=== PATIENT | male | born 1950 | race Caucasian/White ===

== ENCOUNTER 2020-12-04 10:56 | Observation (INO) | payer OTHER, SELFPAY ==
[2020-12-04] VITALS (13 sets, daily range): BP systolic 142–185; BP diastolic 75–108; PULSE 55–82; RESP 14–22; TEMP 36–36.4; O2SAT 99–100; BMI 25.4
--- NOTE | ~2020-12-04 | XR_ITS ---
XR chest 2V DATE: 12/04/2020 11:18 INDICATION: Acute onset of chest pressure TECHNIQUE: PA and lateral views COMPARISON: 05/27/2016 two-view chest FINDINGS: There is bilateral hyperinflation. No pulmonary infiltrate or consolidation, pleural effusi on or pulmonary vascular congestion or pneumothorax. Normal heart size. No hilar or mediastinal enlar gement. Degenerative spurring of the thoracic spine. IMPRESSION: Bilateral hyperinflation; no active cardiopulmonary disease Reviewed, dictated and finalized at location B.
--- NOTE | 2020-12-04 10:58 | ECG_ITS ---
Measurements Intervals Energy Rate: 82 P: 75 MT: 170 QRS: -45 QRSD: 103 T: 58 QT: 351 QTc: 410 Interpretive Statements SINUS RHYTHM INCOMPLETE RIGHT BUNDLE BRANCH BLOCK LEFT ANTERIOR FASCICULAR BLOCK ABNORMAL ECG Electronically Signed On 12-04-2020 11:07:56 CDT by Juan José Fernandez D.O.
[2020-12-04 11:13] LABS: Basophils Absolute Auto 0.1 K/mm3 (0.0-0.1); Basophils Percent Auto 0.8 % (0.2-1.2); Eosinophils Absolute Auto 0.3 K/mm3 (0-0.3); Eosinophils Percent Auto 2.8 % (0-4.4); Hematocrit 43.1 % (42.0-52.0); Hemoglobin 14.4 g/dL (14.0-18.0); Immature Granulocyte Absolute 0.03 K/mm3 (0.00-0.031); Immature Granulocyte Percent A 0.3 % (0-0.5); Lymphocytes Absolute Auto 2.26 K/mm3 (0.9-3.2); Lymphocytes Percent Auto 19.8 % (18.3-44.2); Mean Corpuscular HGB Conc 33.4 g/dl (32-36); Mean Corpuscular Hemoglobin 29.8 pg (26-34); Mean Corpuscular Volume 89.2 fl (80-100); Monocytes Absolute Auto 0.9 K/mm3 (0.1-0.6); Monocytes Percent Auto 8.2 % (2.6-8.5); Neutrophils Absolute Auto 7.8 K/mm3 (1.3-6.7); Neutrophils Percent Auto 68.1 % (45.5-73.1); Platelet Count Result 391 k/mm3 (150-375); Red Blood Count 4.83 M/mm3 (4.6-6.20); Red Cell Distribution Width 14.2 % (11.5-14.5); White Blood Count 11.4 K/mm3 (4.5-10.0)
[2020-12-04 11:24] LABS: Anion Gap 11 mmol/L (8-16); Blood Urea Nitrogen 29 mg/dL (9-20); Calcium 9.6 mg/dL (8.4-10.2); Carbon Dioxide 24 mmol/L (22-30); Chloride 105 mmol/L (98-107); Estimated Glomerular Filt Rate > 60; Glucose 95 mg/dL (65-110); Potassium 4.7 mmol/L (3.4-5.0); Sodium 140 mmol/L (137-145)
[2020-12-04 11:35] LABS: INR 0.8; Partial Thromboplastin Time 28.1 SECONDS (22.3-36.8); Prothrombin Time 11.3 Seconds (11.1-14.7)
[2020-12-04 11:37] LABS: Troponin I < 0.012 ng/mL (0.000-0.034)
[2020-12-04] MEDS: ASPIRIN 81 MG CHEWABLE TABLET 324 MG PO (15:11)
--- NOTE | 2020-12-04 15:47 | ED.CHESTPAIN ---
HPI - Chest Pain General Chief Complaint: Chest Pain Stated Complaint: Chest Pressure Time Seen by Provider: 12/04/20 15:45 Source: patient and RN notes reviewed Limitations: no limitations History of Present Illness HPI narrative: Patient is 70 years old white male presented to the ED because of palpitation, chest pressure, shortness of breath, dizziness, weakness started while playing golf. Currently patient is asymptomatic. Patient is fully vaccinated for COVID-19. Patient reports while playing golf and started having fluttery feeling in the chest off and on subsequently chest pressure, associated with shortness of breath lasted for about 5 minutes then he felt weak ringing in the left ear and dizziness. Patient does not take medicine, does not smoke, does not use drugs, drinks 2-3 times a week Related Data Home Medications Medication Instructions Recorded Confirmed omeprazole PO DAILY PRN 12/04/20 Allergies Allergy/AdvReac Type Severity Reaction Status Date / Time No Known Allergies Allergy Verified 12/04/20 15:00 Review of Systems Review of Systems: CONSTITUTIONAL: Denies fever, chills, or sweats. EYES: Denies visual changes, redness, or discharge. ENT: Denies rhinorrhea, congestion, sore throat, or otalgia. CARDIOVASCULAR: Denies chest pain, palpitations, or edema. RESPIRATORY: Denies cough or dyspnea. GASTROINTESTINAL: Denies abdominal pain, nausea, vomiting, or diarrhea. GENITOURINARY: Denies dysuria or hematuria. SKIN: Denies rash or itching. MUSCULOSKELETAL: Denies back pain, joint pain, or myalgia. NEUROLOGIC: Denies headache, numbness, or weakness. PSYCHIATRIC: Denies anxiety or depression. PMFSH Family History Family History Sibling Family history of malignant neoplasm Mother Family history of congestive heart failure, Onset Age: 78 Social History Social History Smoking status: Never smoker Alcohol intake: current Exam Narrative: General appearance: Well-developed, well-nourished Skin: Normal color Head: Normocephalic, nontraumatic Eyes: Clear conjunctiva ENT: Oropharynx normal, ears normal, nose normal Neck: Supple, nontender Chest and respiratory: Airway patent, no respiratory distress, no accessory muscle use Heart: Regular rate/rhythm Abdomen: Soft, nontender, no organomegaly, quiet bowel sounds Vascular: Normal peripheral pulses, normal capillary refill. Musculoskeletal: Normal range of motion, nontender back Neurologic: Alert and oriented ?3, QUALIFICATION ENGINEER is normal as tested, no gross motor deficit Course Course Emergency Course: Stable, improved, currently asymptomatic Vital Signs Vital signs: Vital Signs Temperature 36.2 C L 12/04/20 11:58 Pulse Rate 81 12/04/20 11:58 Respiratory Rate 18 12/04/20 11:58 Blood Pressure 158/96 H 12/04/20 11:58 Pulse Oximetry 100 12/04/20 11:58 Temperature 36.2 C L 12/04/20 11:58 Pulse Rate 75 12/04/20 15:02 Respiratory Rate 14 12/04/20 15:02 Blood Pressure 185/94 H 12/04/20 15:02 Pulse Oximetry 99 12/04/20 15:02 MDM - Chest Pain MDM Narrative Medical decision making narrative: Palpitation, chest pain and dizziness. Raises the suspicious for tachyarrhythmia. Labs, chest x-ray ordered. Work-up showed no significant findings to explain patient condition. Patient will be hospitalized for 24 hours for telemetry monitoring and possible cardiac stress test. Differential Diagnosis Differential diagnosis: Likely unstable angina pectoris, atypical chest pain, chest pain and other (Palpitation) Lab Data Result diagrams:
[2020-12-04 15:49] LABS: Troponin I < 0.012 ng/mL (0.000-0.034)
[2020-12-04] MEDS: METOPROLOL TARTRATE TAB 25 MG, METOPROLOL TARTRATE TAB 12.5 MG 37.5 MG PO ×2 (17:36→17:41)
[2020-12-04 18:39] LABS: Troponin I < 0.012 ng/mL (0.000-0.034)
--- NOTE | 2020-12-04 18:39 | PC.NURSE ---
This patient, Arvind Valdes, was admitted to IMU Room 201-01. Patient/family oriented to hospital policies and general routines including ID bracelet, bed and alarms, visiting hours, pain management, procedures, bathroom and other care routines, personal items, smoking policy, room service/diet, and visiting hours. Information on how to activate the Rapid Response Team has been discussed. Patient/Family are encouraged to report perceived risks to care and to ask questions if they do not understand what they are told or what they should do.
--- NOTE | 2020-12-04 19:55 | PM.IMHP ---
H&P: HPI History of Present Illness Date/Time: 12/04/20 19:55 this is a 70-year-old male patient who has an advocate cough for. The patient has no past medical history. The patient stated that he has had palpitations in the past and it has resolved on its own. The patient stated that he coughed 9 rounds today and he was feeling weak and dizzy and was having palpitations. The patient stated that he could not carry on to finish his golf game but he waited to come to the emergency room approximately 1 hour. The patient stated that when he the palpitations he did have some chest pressure. He did not have any radiation of the chest discomfort. He was not nauseated. No fever chills or cough. His white count was noted to be 11.5.chest x ray was read as bilateral hyperinflation no active cardiopulmonary disease. The patient was given aspirin metoprolol and Tylenol in the emergency room. Patient's blood pressure was 158/96. Now is 142/75. He has no previous history of hypertension. EKG was read as sinus rhythm incomplete right bundle-branch block. The patient who is admitted to observation on the date of service of 12/04/2020. Chief Complaint: Palpitations Review of Systems Review of Systems: All systems reviewed & are unremarkable except as noted in HPI and below Constitutional: Constitutional: Reports as per HPI and Reports no additional constitutional complaints Eyes: Eyes: Reports as per HPI and Reports no additional eye complaints ENT: Reports system reviewed and no additional complaints, except as documented and Reports Normal hearing present Cardiovascular: Cardiovascular: Reports no additional cardiovascular complaints Respiratory: Respiratory: Reports no additional respiratory complaints and Reports no additional respiratory complaints Gastrointestinal: Gastrointestinal: Reports as per HPI and Reports no additional gastrointestinal complaints Musculoskeletal: Musculoskeletal: Reports no additional musculoskeletal complaints Integumentary/Breasts: Skin/Breast: Reports system reviewed and no additional complaints, except as docu and Reports as per HPI Neurologic: Reports system reviewed and no additional complaints, except as documented, Reports as per HPI and Reports Normal hearing present Psychiatric: Psychiatric: Reports no additional psychiatric complaints and Reports as per HPI Endocrine: Endocrine: Reports no additional endocrine complaints Hematologic/Lymphatic: Hematologic/Lymphatic: Reports no additional hematologic/lymphatic complaints Allergic/Immunologic: Allergic/Immunologic: Reports no additional allergic/immunologic complaints [facility] Past Medical History Medical History (Updated 12/04/20 @ 20:15 by Terrie Ho NP) H/O gastroesophageal reflux (GERD) Surgical History Surgical History (Updated 12/04/20 @ 20:15 by Terrie Ho NP) History of appendectomy Family History Family History Sibling Family history of malignant neoplasm Mother Family history of congestive heart failure, Onset Age: 78 Social History Social History (Updated 12/04/20 @ 20:18 by Terrie Ho NP) Social History: The patient is and has 2 children. The patient does not have a durable power delivery crew worker for healthcare. The patient is a full code. The patient stated that he quit smoking cigarettes about 11 years ago. The patient states he might have 6 beers a week. He does not drink every day. He is a social drinker. The patient is retired from a [employer] company. Smoking packs per day: 2 Smoking cigarettes per day: 40.0 Years smoked: 35 Smoking pack-years: 70.00 Smoking status: Former smoker Tobacco type: cigarettes Alcohol intake: current Drinks per week: 6 Substance use: never Spiritual care concerns: No Meds Home Medications and Allergies Home Medications Medication Instructions Recorded
[2020-12-04] MEDS: METOPROLOL TARTRATE 12.5 MG TABLET PO (21:23)
[2020-12-05] VITALS (13 sets, daily range): BP systolic 132–156; BP diastolic 74–82; PULSE 53–84; RESP 14–20; TEMP 36.1–36.6; O2SAT 98
--- NOTE | 2020-12-05 | EST_ITS ---
Patient Info Name: Arvind Valdes Age: 70 years : 1950 Gender: Male Ht: 69 in Wt: 171 lbs BSA: 1.95 m2 HR: 67 bpm BP: 143 / 86 mmHg Heart Rhythm: Sinus Rhythm Exam Date: 12/05/2020 10:44 AM Exam Location: [facility] Stress Patient Status: Inpatient Admit Date: 12/04/2020 Staff Ordering Physician: Terrie Ho NP Attending Provider: Gretta Rbobins MD Exercise Technologist: Sowmya Morris CT Exercise Physician: Juan José Fernandez DO Exam Type: CA stress test treadmill Study Info Indications R07.89 - Other chest pain Summary 1. 1. Negative Buddy exercise stress test for ischemic ST changes by ECG criteria. 2. 2. Good functional capacity, achieving 10 METs of workload. 3. 3. Baseline hypertension with hypertensive response to exercise. 4. 4. Appropriate HR response to exercise. 5. 5. Appropriate HR recovery at 1 minute post exercise. 6. 6. No imaging with stress testing. 7. 7. Patient informed of the above results. Protocol: Buddy Stress ECG Details Stage: REST Duration (min): 1 min : 10 sec Speed (mph): 0.0 Grade (%): 0 HR (bpm): 68 SBP (mmHg): 143 DBP (mmHg): 86 METS: --- Stage: REST Duration (min): 13 min : 0 sec Speed (mph): 0.0 Grade (%): 0 HR (bpm): 67 SBP (mmHg): 143 DBP (mmHg): 86 METS: --- Stage: STAGE 1 Duration (min): 1 min : 0 sec Speed (mph): 1.7 Grade (%): 10 HR (bpm): 91 SBP (mmHg): 143 DBP (mmHg): 86 METS: --- Stage: STAGE 1 Duration (min): 2 min : 0 sec Speed (mph): 1.7 Grade (%): 10 HR (bpm): 91 SBP (mmHg): 143 DBP (mmHg): 86 METS: --- Stage: STAGE 1 Duration (min): 3 min : 0 sec Speed (mph): 1.7 Grade (%): 10 HR (bpm): 90 SBP (mmHg): 170 DBP (mmHg): 73 METS: --- Stage: STAGE 2 Duration (min): 1 min : 0 sec Speed (mph): 2.5 Grade (%): 12 HR (bpm): 96 SBP (mmHg): 170 DBP (mmHg): 73 METS: --- Stage: STAGE 2 Duration (min): 2 min : 0 sec Speed (mph): 2.5 Grade (%): 12 HR (bpm): 100 SBP (mmHg): 173 DBP (mmHg): 68 METS: --- Stage: STAGE 2 Duration (min): 3 min : 0 sec Speed (mph): 2.5 Grade (%): 12 HR (bpm): 101 SBP (mmHg): 173 DBP (mmHg): 68 METS: --- Stage: STAGE 3 Duration (min): 1 min : 0 sec Speed (mph): 3.4 Grade (%): 14 HR (bpm): 109 SBP (mmHg): 191 DBP (mmHg): 69 METS: --- Stage: STAGE 3 Duration (min): 2 min : 0 sec Speed (mph): 3.4 Grade (%): 14 HR (bpm): 114 SBP (mmHg): 191 DBP (mmHg): 69 METS: --- Stage: STAGE 3 Duration (min): 3 min : 0 sec Speed (mph): 3.4 Grade (%): 14 HR (bpm): 122 SBP (mmHg): 230 DBP (mmHg): 98 METS: --- Stage: STAGE 4 Duration (min): 0 min : 23 sec Speed (mph): 4.2 Grade (%): 16 HR (bpm): 134 SBP (mmHg): 230 DBP (mmHg): 98 METS: ---
[2020-12-05 05:09] LABS: Basophils Absolute Auto 0.1 K/mm3 (0.0-0.1); Eosinophils Absolute Auto 0.5 K/mm3 (0-0.3); Eosinophils Percent Auto 5.7 % (0-4.4); Hematocrit 42.3 % (42.0-52.0); Hemoglobin 13.9 g/dL (14.0-18.0); Immature Granulocyte Absolute 0.04 K/mm3 (0.00-0.031); Immature Granulocyte Percent A 0.5 % (0-0.5); Lymphocytes Absolute Auto 1.81 K/mm3 (0.9-3.2); Lymphocytes Percent Auto 20.6 % (18.3-44.2); Mean Corpuscular HGB Conc 32.9 g/dl (32-36); Mean Corpuscular Hemoglobin 29.9 pg (26-34); Mean Platelet Volume 9.2 fl (7.4-10.4); Monocytes Absolute Auto 0.8 K/mm3 (0.1-0.6); Monocytes Percent Auto 8.8 % (2.6-8.5); Neutrophils Absolute Auto 5.6 K/mm3 (1.3-6.7); Neutrophils Percent Auto 63.4 % (45.5-73.1); Platelet Count Result 354 k/mm3 (150-375); Red Blood Count 4.65 M/mm3 (4.6-6.20); Red Cell Distribution Width 14.4 % (11.5-14.5); White Blood Count 8.8 K/mm3 (4.5-10.0)
[2020-12-05 05:24] LABS: Lactic Acid Reflex 0.6 mmol/L (0.7-2.1)
[2020-12-05 05:28] LABS: Alanine Aminotransferase 30 U/L (4-50); Albumin Level 4.7 g/dL (3.5-5.1); Alkaline Phosphatase 37 U/L (38-126); Anion Gap 9 mmol/L (8-16); Aspartate Amino Transferase 44 U/L (17-59); Bilirubin,Total 0.6 mg/dL (0.2-1.3); Blood Urea Nitrogen 21 mg/dL (9-20); Calcium 9.4 mg/dL (8.4-10.2); Carbon Dioxide 26 mmol/L (22-30); Chloride 105 mmol/L (98-107); Estimated CRCL calculation 68 ml/min; Estimated Glomerular Filt Rate > 60; Glucose 95 mg/dL (65-110); Lipase 104 U/L (23-300); Magnesium 2.1 mg/dL (1.6-2.3); Potassium 4.4 mmol/L (3.4-5.0); Sodium 140 mmol/L (137-145)
[2020-12-05] MEDS: ASPIRIN 81 MG CHEWABLE TABLET PO (09:49)
[2020-12-05] MEDS: ENOXAPARIN 40 MG/0.4 ML SYRINGE SUB-Q (09:49)
[2020-12-05] MEDS: METOPROLOL TARTRATE 12.5 MG TABLET PO (09:49)
--- NOTE | 2020-12-05 12:53 | PM.DS ---
DS: Admitting Diagnosis Discharge Date 12/05/20 Admitting Diagnosis Chest pain with palpitations DS: Discharge Diagnosis Discharge Diagnosis (1) Chest pain: Qualifiers: Chest pain type: unspecified Qualified Code(s): R07.9 - Chest pain, unspecified Code(s): R07.9 - Chest pain, unspecified Status: Acute (2) Palpitation: Code(s): R00.2 - Palpitations Status: Acute (3) Hypertension: Qualifiers: Hypertension type: unspecified Qualified Code(s): I10 - Essential (primary) hypertension Code(s): I10 - Essential (primary) hypertension Status: Acute (4) H/O gastroesophageal reflux (GERD): Code(s): Z87.19 - Personal history of other diseases of the digestive system Status: Chronic DS: Summary Hospital Course Reason for hospitalization: 70yo healthy male here for chest pain and palpitations. Please see H&P for details Hospital Course: 70-year-old healthy male presents emergency room with complaints of chest and palpitations. He was having acute acute onset palpitations during the day. Palpitations became persistent and associated chest pain and lightheadedness with standing which prompted his ED visit. In the ED, his blood pressure was mildly elevated. CBC, lactic acid, Lipase and CMP were normal. TSH was normal. Troponin is negative x3. Chest x-ray showed hyperinflation. He is a nonsmoker and denies having asthma. Did have a mild eosinophilia but has seasonal allergies that are bothering him now. EKG showed incomplete right bundle branch block and left anterior fascicular block with cQT 410. Patient was started on metoprolol from the ED. Patient underwent treadmill stress test which showed blood pressure 230/98 with exertion. He achieved target heart rate. Essentially this was read as a normal treadmill stress test. He remained on telemetry throughout his hospital course without significant dysrhythmias. Patient has not had any further symptoms since being admitted. His BP did improve with the metoprolol. Patient overall did well and was able to be discharged home on 12/05/2020. Plans for home with a event recorder. Discussed with Cardiology prior to discharge. Status at Discharge Cognitive/behavioral status at discharge: stable Time Spent with Patient Time attestation: Total time spent providing and/or coordinating discharge services: 35 minutes Time spent: Greater than 30 minutes Exam Narrative: AF 97.0 132/82 79 18 98% ra Gen - NARD Chest - CTA bilaterally, nml RR CV - RRR S1/S2; Tele showing no significnat dysrhythmias Abd - Soft, NT/ND, Positive BS Ext - No pedal edema Neuro - Alert and oriented. Nonfocal exam. Psych - Nml mood and affect Skin - Warm and dry DS: Data Data Completed and Pending Labs on day of discharge: Labs from last 24 hours 12/05/20 12/05/20 12/05/20 04:26 04:26 04:26 WBC 8.8 RBC 4.65 Hgb 13.9 L Hct 42.3 MCV 91.0 MCH 29.9 MCHC 32.9 RDW 14.4 Plt Count 354 MPV 9.2 Immature Gran % (Auto) 0.5 Neut % (Auto) 63.4 Lymph % (Auto) 20.6 [place] % (Auto) 8.8 H Eos % (Auto) 5.7 H Baso % (Auto) 1.0 Lymph # (Auto) 1.81 [place] # (Auto) 0.8 H Eos # (Auto) 0.5 H Baso # (Auto) 0.1 Abs Immat Gran (auto) 0.04 H Absolute Neuts (auto) 5.6 Absolute Nucleated RBC 0.0 Nucleated RBC % 0.0 Sodium 140 Potassium 4.4 Chloride 105 Carbon Dioxide 26 Anion Gap 9 BUN 21 H Creatinine 0.90 Estim Creat Clear Calc 68 Estimated GFR > 60 Glucose 95 Lactic Acid 0.6 L Calcium 9.4 Magnesium 2.1 Total Bilirubin 0.6 AST 44 ALT 30 Alkaline Phosphatase 37 L Troponin I Total Protein 7.0 Albumin 4.7 Lipase 104 TSH 12/04/20 12/04/20 12/04/20 18:08 18:08 14:44 WBC RBC Hgb Hct MCV MCH MCHC RDW Plt Count MPV Immature Gran % (Auto) Neut %
--- NOTE | 2020-12-05 15:04 | PC.NURSE ---
Dr Fernandez's Cecelia FAITH educated the patient on the event monitor and placed monitor on patient.
== END 2020-12-05 16:18 | disposition home or self-care (01) ==
LOC: ANHED 16:16 → ANHIMU 12-05 09:53
PROVIDERS: Emergency Medicine; Nurse Practitioner; Admitting Provider Internal Medicine; Emergency Provider Emergency Medicine; PCP Emergency Medicine; Visit Provider Internal Medicine
DX: R00.2 Palpitations (principal); R07.9 Chest pain, unspecified; I10 Essential (primary) hypertension; K21.9 Gastro-esophageal reflux disease without esophagitis; Z87.891 Personal history of nicotine dependence
CPT/HCPCS: 36415; 71046; 80048; 80053; 83605; 83690; 83735; 84443; 84484; 85025; 85610; 85730; 93005; 93017; 96372; 99285; A9270; G0378; J1650

== ENCOUNTER 2021-09-21 08:23 | Outpatient (CLI) | payer OTHER, SELFPAY ==
--- NOTE | 2021-09-21 08:53 | ECHO_ITS ---
Patient Info Name: Arvind Valdes Age: 71 years : 1950 Gender: Male Ht: 69 in Wt: 155 lbs BSA: 1.85 m2 HR: 54 bpm BP: 160 / 94 mmHg Technical Quality: Good Exam Date: 09/21/2021 9:28 AM Exam Location: [facility] Patient Status: Outpatient Admit Date: 09/21/2021 Staff Ordering Physician: Juan José Fernandez DO Restaurant Kitchen Manager: Aurora Yee RDCS Attending Provider: Juan José Fernandez DO Referring Physician: Jim WOODALL; Exam Type: CA echo doppler color flow Study Info Indications R06.00 - Dyspnea, unspecified Complete two-dimensional, color flow and Doppler transthoracic echocardiogram is performed. Summary 1. Complete two-dimensional, color flow and Doppler transthoracic echocardiogram is performed. 2. Left ventricular chamber dimension is normal. 3. Left ventricular systolic function is normal, estimated at 55-60%. 4. The left ventricular diastolic function is grade I diastolic dysfunction. 5. E/e' 9 is minimally elevated. 6. Global longitudinal strain is normal at -20.0%. 7. Left atrial chamber dimension is moderately enlarged. 8. Right atrial chamber dimension is moderately enlarged. 9. There is mild mitral valve regurgitation. 10. There is mild tricuspid valve regurgitation. 11. No pulmonary hypertension, estimated pulmonary arterial systolic pressure is 26 mmHg. Left Ventricle E/e' 9 is minimally elevated. Global longitudinal strain is normal at -20.0%. Left ventricular chamber dimension is normal. Left ventricular systolic function is normal, estimated at 55-60%. The left ventricular diastolic function is grade I diastolic dysfunction. Right Ventricle Right ventricular systolic function is normal and with normal TAPSE 2.3 cm. Right ventricular chamber dimension is normal. Left Atria Left atrial chamber dimension is moderately enlarged. Right Atria Right atrial chamber dimension is moderately enlarged. Aortic Valve The aortic valve is trileaflet. There is no aortic valve stenosis. There is no aortic valve regurgitation. Pulmonic Valve There is no pulmonic regurgitation. Mitral Valve There is no mitral valve stenosis. There is mild mitral valve regurgitation. Tricuspid Valve There is mild tricuspid valve regurgitation. No pulmonary hypertension, estimated pulmonary arterial systolic pressure is 26 mmHg. Pericardium/Pleural There is no pericardial effusion. Inferior Vena Cava Normal inferior vena cava with >50% collapse upon inspiration consistent with normal right atrial pressure, 5 mmHg. Aorta The aortic root size at the sinus of Valsalva is normal. Left Ventricular Outflow Tract Name Value Normal LVOT 2D LVOT Diameter 2.0 cm LVOT Doppler LVOT Peak Gradient 3 mmHg LVOT Mean Gradient 2 mmHg LVOT VTI 24 cm LVOT VTI/AV VTI Ratio 0.9 LVOT Stroke Volume 76 ml LVOT CO 12.2 l/min LVOT CI 6.6 l/min/m2 Pulmonic Valve
== END 2021-09-21 08:24 | disposition home or self-care (01) ==
PROVIDERS: PCP Emergency Medicine; Visit Provider Internal Medicine Cardiovascular Disease
DX: R06.00 Dyspnea, unspecified (principal); I34.0 Nonrheumatic mitral (valve) insufficiency; I36.1 Nonrheumatic tricuspid (valve) insufficiency
CPT/HCPCS: 93306

== ENCOUNTER 2023-02-11 02:41 | Day surgery (SDC) | payer OTHER, SELFPAY ==
[2023-01-28 14:05] VITALS: BMI 26.0
--- NOTE | 2023-02-07 12:15 | SUR.PREOP ---
Patient called regarding upcoming procedure. Reviewed preop instructions, appointment times, and procedure prep.
[2023-02-11 10:18] VITALS: BP 123/79; PULSE 76; RESP 16; TEMP 36; O2SAT 97; BMI 23.7
[2023-02-11] MEDS: LACTATED RINGERS 1,000 ML 150 ML IV CONT (10:25)
--- NOTE | 2023-02-11 10:28 | WPDANESEPPF ---
Anes - Initial Pre Proc Eval Procedure: Operation Date: 02/11/23 15:00 Proposed Procedures p Screening Colonoscopy - Walter Mayorga MD Date/Time: 02/11/23 10:28 Surgeon: Walter Mayorga MD Pre Op Diagnosis: neoplasm screening Patient Data Age: 72 Gender: M Height: 1.75 m Weight: 72.9 kg Last Vital Signs Temp 96.8 F L 02/11/23 10:18 Pulse 76 02/11/23 10:18 Resp 16 02/11/23 10:18 BP 123/79 02/11/23 10:18 Pulse Ox 97 02/11/23 10:18 O2 Del Method Room Air 02/11/23 10:18 Allergies Allergy/AdvReac Type Severity Reaction Status Date / Time No Known Allergies Allergy Verified 02/11/23 10:16 Home Medications Medication Instructions Recorded Confirmed Type omeprazole 20 mg tablet,delayed 20 mg PO PRN PRN Acid Reflux 12/04/20 02/11/23 History release metoprolol tartrate 25 mg tablet See Rx Instructions .Route 11/12/22 02/11/23 Rx .COMPLEX #180 tabs amlodipine 5 mg tablet See Rx Instructions .Route 12/19/22 02/11/23 Rx .COMPLEX #90 tabs Patient hx anesthesia problems: none Family hx anesthesia problems: none Results Review: All pre-operative results and documents have been reviewed as part of the pre-operative evaluation. [facility] Past Medical History Medical History H/O chemical exposure H/O gastroesophageal reflux (GERD) Primary osteoarthritis involving multiple joints Right upper quadrant abdominal pain Senile cataract of left eye Skin lesion of back Surgical History Surgical History History of appendectomy Family History Family History Sibling Family history of malignant neoplasm Mother Family history of congestive heart failure, Onset Age: 78 Social History Social History Social History: The patient is and has 2 children. The patient does not have a durable power title attorney for healthcare. The patient is a full code. The patient stated that he quit smoking cigarettes about 11 years ago. The patient states he might have 6 beers a week. He does not drink every day. He is a social drinker. 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 Smoking packs per day: 2 Smoking cigarettes per day: 40.0 Years smoked: 35 Smoking pack-years: 70.00 Smoking status: Never smoker Tobacco type: cigarettes Alcohol intake: current Drinks per week: 6 Substance use: never Lack of Transportation: No Lack of Food: Never True Current Housing: I Have Housing Concerned About Future Housing: No Difficulty Paying Gas/Electric Bills: No Difficulty Paying for Meds: No Currently Unemployed: No Education: High School Diploma/GED Difficulty w/ Childcare or Family Care: No Living arrangements: with family Spiritual care concerns: No Anes - Eval Final PreProcedure Day of Procedure 02/11/23 10:28 Patient weight: normal Heart: regular rate and rhythm Lungs: clear to auscultation Airway: Mallampati scale class II Neurological: alert and oriented Last oral intake: >/= 8 hours ASA classification: III Emergent: no Anesthetic plan: proceed Anesthesia type and monitoring: general GIVS and standard monitoring Results Review: All pre-operative results and documents have been reviewed as part of the pre-operative evaluation. Informed Consent: The patient's anesthetic plan and its attendant risks and benefits were discussed with the patient/family/POA. Questions were solicited and answers provided to the satisfaction of the patient/family/POA.
--- NOTE | 2023-02-11 10:40 | PM.HPGS ---
History of Present Illness History of Present Illness Consent: Risks, benefits, and alternatives have been discussed and questions answered. Patient agrees to proceed with procedure. Chief complaint: neoplasm screening Narrative: Arvind Valdes is a 72 year old male here for colonoscopy, last one 10 years ago Review of Systems Constitutional: Constitutional: Denies headache(s) and Denies weakness Eyes: Eyes: Denies blurry vision ENT: Reports Normal hearing present, Denies headache(s) and Denies neck pain Cardiovascular: Cardiovascular: Denies chest pain and Denies dyspnea Respiratory: Respiratory: Denies dyspnea Gastrointestinal: Gastrointestinal: Reports no additional gastrointestinal complaints Genitourinary: Genitourinary: Denies dysuria Musculoskeletal: Musculoskeletal: Denies neck pain Integumentary/Breasts: Skin/Breast: Denies dry skin Neurologic: Reports Normal hearing present, Denies headache(s) and Denies weakness Psychiatric: Psychiatric: Denies anxiety Endocrine: Endocrine: Denies change in body appearance Hematologic/Lymphatic: Hematologic/Lymphatic: Denies easy bleeding Allergic/Immunologic: Allergic/Immunologic: Denies urticaria PMFSH Past Medical History Medical History H/O chemical exposure H/O gastroesophageal reflux (GERD) Primary osteoarthritis involving multiple joints Right upper quadrant abdominal pain Senile cataract of left eye Skin lesion of back Surgical History Surgical History History of appendectomy Family History Family History Sibling Family history of malignant neoplasm Mother Family history of congestive heart failure, Onset Age: 78 Social History Social History Social History: The patient is and has 2 children. The patient does not have a durable power contract attorney for healthcare. The patient is a full code. The patient stated that he quit smoking cigarettes about 11 years ago. The patient states he might have 6 beers a week. He does not drink every day. He is a social drinker. 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 Smoking packs per day: 2 Smoking cigarettes per day: 40.0 Years smoked: 35 Smoking pack-years: 70.00 Smoking status: Never smoker Tobacco type: cigarettes Alcohol intake: current Drinks per week: 6 Substance use: never Lack of Transportation: No Lack of Food: Never True Current Housing: I Have Housing Concerned About Future Housing: No Difficulty Paying Gas/Electric Bills: No Difficulty Paying for Meds: No Currently Unemployed: No Education: High School Diploma/GED Difficulty w/ Childcare or Family Care: No Living arrangements: with family Spiritual care concerns: No Meds Home Medications and Allergies Home Medications Medication Instructions Recorded Confirmed Type omeprazole 20 mg tablet,delayed 20 mg PO PRN PRN Acid Reflux 12/04/20 02/11/23 History release metoprolol tartrate 25 mg tablet See Rx Instructions .Route 11/12/22 02/11/23 Rx .COMPLEX #180 tabs amlodipine 5 mg tablet See Rx Instructions .Route 12/19/22 02/11/23 Rx .COMPLEX #90 tabs Allergies Allergy/AdvReac Type Severity Reaction Status Date / Time No Known Allergies Allergy Verified 02/11/23 10:16 Vital Signs Vital Signs - 24 hr 02/11/23 10:18 Temperature 96.8 F L Pulse Rate 76 Respiratory Rate 16 Blood Pressure 123/79 Pulse Oximetry 97 Oxygen Delivery Room Air Exam Const: General: comfortable and no acute distress HENMT: Face/Nose/Sinus: Normal nares present Eyes: General: appearance normal, both eyes and all related structures Neck: Neck: no JVD Resp: Auscultation: clear to auscultation bilaterally Cardio: Rate
[2023-02-11 10:53] VITALS: BP 105/65; PULSE 65; RESP 20; O2SAT 98
[2023-02-11 11:03] VITALS: BP 103/64; PULSE 62; RESP 20; O2SAT 100
[2023-02-11 11:13] VITALS: BP 122/73; PULSE 60; RESP 18; O2SAT 100
== END 2023-02-11 11:26 | disposition home or self-care (01) ==
PROVIDERS: PCP Emergency Medicine; Visit Provider Internal Medicine Gastroenterology
PROC: 0DJD8ZZ Inspection of Lower Intestinal Tract, Via Natural or Artificial Opening Endoscopic (ICD-10-PCS; CPT 45378; principal; 2023-02-11 15:00)
DX: Z12.11 Encounter for screening for malignant neoplasm of colon (principal); K64.8 Other hemorrhoids; K57.30 Diverticulosis of large intestine without perforation or abscess without bleeding; K21.9 Gastro-esophageal reflux disease without esophagitis; M15.9 Polyosteoarthritis, unspecified; Z87.891 Personal history of nicotine dependence; Z87.2 Personal history of diseases of the skin and subcutaneous tissue; Z82.49 Family history of ischemic heart disease and other diseases of the circulatory system; Z80.9 Family history of malignant neoplasm, unspecified
CPT/HCPCS: G0105; J2704; J7120

== ENCOUNTER 2024-03-05 14:46 | Outpatient (CLI) | payer OTHER, SELFPAY ==
--- NOTE | ~2024-03-05 | US_ITS ---
EXAMINATION: US renal BI DATE: 03/05/2024 15:08 INDICATION: Abnormal renal function tests TECHNIQUE: Multiple ultrasound grayscale images of the kidneys were obtained. COMPARISON: None. FINDINGS: The right kidney measures 7.2 x 3.3 x 3.3 cm. The left kidney measures 10.4 x 5.0 x 4.2 cm. The kidne ys demonstrate normal echogenicity. There is asymmetric mild to moderate cortical atrophy at the righ t kidney. There is no hydronephrosis in either kidney. No stones identified. The bladder is normal. IMPRESSION: 1. Normal left kidney and asymmetric mild to moderate right renal atrophy. No hydronephrosis. Reviewed, dictated and finalized at location A. R FRAMER
== END 2024-03-05 14:47 | disposition home or self-care (01) ==
LOC: MICIMG 14:46
PROVIDERS: PCP Emergency Medicine; Visit Provider Internal Medicine Nephrology
DX: R94.4 Abnormal results of kidney function studies (principal)
CPT/HCPCS: 76775

== ENCOUNTER 2024-08-26 13:40 | Outpatient (CLI) | payer OTHER, SELFPAY ==
--- NOTE | ~2024-08-26 | US_ITS ---
Ankle Brachial Index with Ultrasound Dopplers and Pulse Volume Recordings Technique: Pressures in the arm and lower extremity were obtained. Additionally, arterial and pulse v olume waveforms were obtained bilaterally. Findings: Segmental pressures Right upper thigh: 133 Right lower thigh: 136 Right calf: 117 Right posterior tibial: 101 Right dorsalis pedis: 93 Left upper thigh: 130 Left lower thigh: 123 Left calf: 128 Left posterior tibial: 111 Left dorsalis pedis: 124 There are biphasic waveforms on the left and monophasic waveforms on the right. GENEVA Right 0.68 Left 0.84 TBI Right 0.55 Left 0.39 Impression: Moderate peripheral arterial disease on the right. Mild peripheral arterial disease on the left Reviewed, dictated and finalized at location A. Impression: Moderate peripheral arterial disease on the right. Mild peripheral arterial disease on the left
--- OUTSIDE RECORDS SUMMARY | 2024-08-26 13:53 | XMS_ITS | Referral Summary ---
Author Organization [facility] Address [address] [place] [address] Care Team Providers Care Maintenance Specialist Name Role Phone David Becerra MD Primary Care Provide r Allergies No known active allergies Medications amLODIPine (NORVASC) 5 mg tabletIndicatio ns:Raynaud's Phenomenon,hype rtension Take 1 tablet (5 mg total) by mouth every morning 04/28/2022 Active metoprolol tartrate (LOPRESSOR) 25 mg immediate release tabletIndicatio ns:Atrial Arrhythmia,hype rtension,SVT Take 1 tablet (25 mg total) by mouth 2 (two) times a day 05/19/2022 Active omeprazole (PriLOSEC) 20 mg capsule Take 1 capsule (20 mg total) by mouth daily as needed (heartburn) Active ibuprofen (ADVIL,MOTRIN) 200 mg tab/cap Take 2 tablet/capsu le (400 mg total) by mouth every 6 (six) hours as needed for pain Active HYDROcodone-renee taminophen (NORCO) 5-325 mg per tabletIndicatio ns:Pain Take 1 tablet by mouth every 6 (six) hours as needed for pain 10 tablet 07/15/2022 Active Active Problems Problem Noted Date Diagnosed Date Dupuytren's contracture of left hand 05/22/2022 Overview (05/22/2022): Added automatically from request for surgery [id number] Social History Tobacco Use Types Packs/Day Years Used Date Smoking Tobacco: Former Cigarettes 2 42 1 968 - 2010 Smokeless Tobacco: Former Chew Quit: 2010 Comments:Have not smoked in 12 years AUDIT-C Answer Date Recorded Q1: How often do you have a drink containing alc ohol? 2-3 times a week 07/04/2022 Q2: How many drinks containi ng alcohol do you have on a typical day when you are drinking? 3 or 4 07/04/2022 Q3: How often do you have si x or more drinks on one occasion? Never 07/04/2022 Personal Safety Answer Date Recorded Have you ever been in or are you currently in a harmful physical or emotional relationship or is someone making you feel afraid or unsafe? 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 Gender Identity Not on file Sexual Orientation Not on file Last Filed Vital Signs Vital Sign Reading Time Taken Comments Blood Pressure 144/81 07/15/2022 12:45 PM CDT Pulse 54 07/15/2022 12:50 PM CDT Temperature 36.2 C (97.2 F) 07/15/2022 11:48 AM CDT Respiratory Rate 15 07/15/2022 12:50 PM CDT Oxygen Saturation 96% 07/15/2022 12:50 PM CDT Inhaled Oxygen Concentration - - Weight 72.2 kg (159 lb 1.6 oz) 07/15/2022 8:45 A M CDT Height 175.3 cm (5' 9) 07/15/2022 8:45 AM CDT Body Mass Index 23.49 07/15/2022 8:45 AM CDT Plan of Treatment Not on file Medical Devices Implanted Type Area Cutter Machine Tender Device Identifier Shelf Expiration Date Model / Serial / Lot Hand Biomechanics Lab Cindy Digit Widget System External Fixation Sterile Disposable Dwd-232 - [id number] Implanted:Qty: 1 on 06/03/2022 by Dung Collazo MD at [facility] Left: Hand Hand Biomechanics Lab [id number] 02/08/2032 DWD-232 / / [id number] Insurance [facility] Member Subscriber Plan / Payer (Ef fective 2022-Present) Name:Arvind Valdes Relation to Subscriber:Self Name:Arvind Valdes Payer ID:[id number] (NAIC) Type:MEDICARE RISK OTHER Address: [place] [id number] [facility] Care Teams Maintenance Specialist Relationship Specialty Start Date End Date David Becerra MD [address] [place] [address] PCP - General Emergency Medicine 04/10/22
--- OUTSIDE RECORDS SUMMARY | 2024-08-26 13:53 | XMS_ITS | Clinical Summary ---
Author Organization [facility] Address [address] [place] [address] Care Team Providers Care Burr Grinder Name Role Phone David Becerra MD Primary [...] (05/22/2022): Added automatically from request for surgery [id number] Surgical History Surgery Date Site/Laterality Comments APPENDECTOMY 03/10/1968 - 03/09/1969 1969 CATARACT EXTRACTION Bilateral 2014 FINGER SURGERY 05/08/2022 - 06/07/2022 Medical History Medical History Date Comments GERD (gastroesophageal reflux disease) Not sure many years Heart disease SVT-November 2020 Hypertension November 2020 SVT (supraventricular tachycardia) on metoprolol Family History Medical History Relation Name Comments Stroke Father Rodolfo valdes Diabetes Mother Carmen valdes Cancer Sister Fatou Plasencia Relation Name Status Comments Father Rodolfo valdes Mother Carmen valdes Sister Fatou Plasencia Social History Tobacco Use Types Packs/Day Years Used Date Smoking Tobacco: Former Cigarettes 2 42 1 968 - 2009 Smokeless Tobacco: Former Chew Quit: 2010 Comments:Have [...] on file 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 Gender Identity Not on file Sexual Orientation Not on file Obstetrics History Last Filed Vital Signs Vital Sign Reading [...] 07/15/2022 8:45 AM CDT Plan of Treatment Health Maintenance Due Date Last Done Comments Colon Cancer Screening-Colonoscopy 1950 Depression Screening 1950 Hepatitis C Screening 1950 DTaP/Tdap/Td Vaccine (1 - Tdap) 07/09/1962 Hepatitis B Screening 07/09/1969 Pneumococcal vaccine 65+ (1 of 1 - PCV) 07/09/2001 Zoster Vaccine (1 of 2) 07/09/2001 Abdominal Aortic Aneurysm (A AA) Screen 07/09/2016 Well Visit 65+ 07/09/2016 Fall Risk Assessment 07/16/2023 07/15/2022 Covid-19 Vaccine (4 - 2023-2 5 season) 2023 01/01/2021, 05/27/2020, 05/05/2020 Influenza Vaccine (Season Ended) 2024 12/11/2021, 02/02/2021, 02/22/2020, Additional history exists Medical Devices Implanted Type Area Home School Coordinator Device Identifier Shelf Expiration Date Model / Serial / Lot Hand Biomechanics Lab Cindy Digit Widget System External Fixation Sterile Disposable [id number] - [id number] Implanted:Qty: 1 on 06/03/2022 by Dung Collazo MD at [facility] Left: Hand Hand Biomechanics Lab [id number] 02/08/2032 [id number]-232 / / [id number] Insurance Care Teams Burr Grinder Relationship Specialty Start Date End Date David Becerra MD [address] [place] [address] PCP - General Emergency Medicine 04/10/22
--- OUTSIDE RECORDS SUMMARY | 2024-08-26 13:53 | XMS_ITS | Clinical Summary ---
Author Organization [facility] Address [address] [place] [address] Care Team Providers Care Social Worker Psychiatric Name Role Phone Unavailable Primary Care Provider Unavailabl e Medications amLODIPine (NORVASC) 5 mg tablet Take 1 Tablet (5 mg) by mouth daily. 90 Tablet 2 06/02/2024 3:46 PM CDT 03/16/2024 Active metoprolol tartrate (LOPRESSOR) 25 mg tablet TAKE 1 TABLET BY MOUTH TWICE DAILY 180 Tablet 2 07/27/2024 6:09 PM CDT 04/29/2024 Active atorvastatin (LIPITOR) 20 mg tablet Take 1 Tablet (20 mg) by mouth daily. 30 Tablet 8 06/02/2024 8:11 AM CDT 06/01/2024 Active Encounters Date Type Department Care Team Description 07/29/2024 External Device Data [facility] ABSTRACTION Provider, Abstract 07/28/2024 External Device Data [facility]STRACTION Provider, Abstract 07/27/2024 External Device Data [facility] ABSTRACTION Provider, Abstract 06/22/2024 External Device Data [facility]STRACTION Provider, Abstract 06/15/2024 External Device Data [facility]STRACTION Provider, Abstract 05/26/2024 External Device Data [facility] ABSTRACTION Provider, Abstract from Last 3 Months Social History Tobacco Use Types Packs/Day Years Used Date Smoking Tobacco: Never Assessed Sex and Gender Information Value Date Recorded Sex Assigned at Not on file 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
== END 2024-08-26 13:41 | disposition home or self-care (01) ==
PROVIDERS: PCP Emergency Medicine; Visit Provider Internal Medicine Cardiovascular Disease
DX: I73.9 Peripheral vascular disease, unspecified (principal)
CPT/HCPCS: 93923